=== PATIENT | male | born 1960 | race Caucasian/White ===

== ENCOUNTER → 2019-07-23 | Outpatient (CLI) | payer OTHER | END | disposition home or self-care (01) | LOC: LAB 16:26 | PROVIDERS: ATTEND Nurse Practitioner | DX: E11.9 Type 2 diabetes mellitus without complications (principal) | CPT/HCPCS: 36415; 83036 ==

== ENCOUNTER → 2021-08-22 | Outpatient (CLI) | payer OTHER, SELFPAY | END | disposition home or self-care (01) | LOC: LAB 13:50 | PROVIDERS: ATTEND Internal Medicine | DX: E11.9 Type 2 diabetes mellitus without complications (principal) | CPT/HCPCS: 36415; 83036 ==

== ENCOUNTER → 2022-10-26 | Outpatient (CLI) | payer SELFPAY ==
[2022-10-26 11:00] LABS: BASOPHIL % 0.6 % (0.0-0.2); EOSINOPHIL # 0.2 10^3/uL (0.0-0.2); EOSINOPHIL % 3.2 % (0.0-5.0); LYMPHOCYTES # 1.88 10^3/uL1 (1.0-4.8); LYMPHOCYTES % 26.1 % (24.0-44.0); MEAN CORP HGB 29.4 pg (26-34); MONOCYTES # 0.6 10^3/uL (0.3-0.8); MONOCYTES % 7.9 % (5.0-12.0); NEUTROPHIL # 4.5 10^3/uL (1.8-7.7); NEUTROPHILS % 62.1 % (41.0-85.0); PLATELET COUNT 306 10^3/uL (150-400); RED CELL DISTRIBUTION WIDTH 13.1 % (11.5-14.5)
[2022-10-26 11:30] LABS: CARBON DIOXIDE 25.4 mmol/L (20.0-32)
== END | disposition home or self-care (01) ==
LOC: LAB 10:34
PROVIDERS: ATTEND Internal Medicine
DX: I10 Essential (primary) hypertension (principal); E11.9 Type 2 diabetes mellitus without complications
CPT/HCPCS: 36415; 80053; 80061; 83036; 84439; 84443; 85025

== ENCOUNTER → 2024-03-26 | Outpatient (CLI) | payer MEDICARE ==
[2024-03-26 14:17] LABS: BASOPHIL % 0.4 % (0.0-0.2); EOSINOPHIL % 0.4 % (0.0-5.0); HEMATOCRIT(ML) 43.7 % (37.0-53.0); HEMOGLOBIN 14.9 g/dL (13.9-16.3); LYMPHOCYTES # 1.93 10^3/uL1 (1.0-4.8); LYMPHOCYTES % 23.7 % (24.0-44.0); MEAN CORP HGB 28.8 pg (26-34); MEAN CORP HGB CONCENTRATION 34.1 g/dL (33-36.5); MEAN CORP VOLUME 84.5 fL (78-100); MONOCYTES # 0.5 10^3/uL (0.3-0.8); MONOCYTES % 6.4 % (5.0-12.0); NEUTROPHIL # 5.6 10^3/uL (1.8-7.7); NEUTROPHILS % 68.9 % (41.0-85.0); PLATELET COUNT 266 10^3/uL (150-400); RED BLOOD CELL 5.17 10^6/uL (4.50-5.90); RED CELL DISTRIBUTION WIDTH 11.2 % (11.5-14.5); WHITE BLOOD CELL 8.2 10^3/uL (4.5-11.0)
[2024-03-26 14:18] LABS: +ADD MANUAL DIFF(NO CHRG) NO
[2024-03-26 14:44] LABS: ALBUMIN/GLOBULIN RATIO 0.93; CALCIUM 10.2 mg/dL (8.4-10.5); CARBON DIOXIDE 23.8 mmol/L (20.0-32); CREATININE SERUM 1.35 mg/dL (0.59-1.40); EST GFR, NON-AA 52.9 (>/=60); LDL/HDL RATIO 4.7; POTASSIUM 4.8 mmol/L (3.6-5.2)
== END | disposition home or self-care (01) ==
LOC: LAB 13:57
PROVIDERS: ATTEND Internal Medicine
DX: I10 Essential (primary) hypertension (principal); E11.9 Type 2 diabetes mellitus without complications; E78.5 Hyperlipidemia, unspecified; R35.1 Nocturia; G90.01 Carotid sinus syncope
CPT/HCPCS: 36415; 80053; 80061; 83036; 84153; 84439; 84443; 85025